=== PATIENT | male | born 1975 | race Caucasian/White ===

== ENCOUNTER 2019-11-18 09:06 | Inpatient (IN) ==
[2019-11-18] MEDS ORDERED: SEROQUEL PO PRN (13:53)
[2019-11-18] MEDS ORDERED: ZOFRAN IV PRN (13:53)
[2019-11-18] MEDS ORDERED: TYLENOL PO PRN (13:53)
[2019-11-18] MEDS ORDERED: DESYREL PO PRN (13:53)
[2019-11-18] MEDS ORDERED: NICODERM PATCH TD PRN (13:53)
[2019-11-18] MEDS ORDERED: MOTRIN PO PRN (13:53)
[2019-11-18] MEDS ORDERED: IMODIUM PO PRN ×2 (13:53)
[2019-11-18] MEDS ORDERED: MAALOX PLUS LIQUID PO PRN (13:53)
[2019-11-18] MEDS ORDERED: NICOTINE GUM BUCCAL PRN (13:53)
[2019-11-18] MEDS ORDERED: ZOFRAN ODT PO PRN (13:53)
[2019-11-18] MEDS ORDERED: D5W 1,000 ML IV PRN (13:53)
[2019-11-18] MEDS ORDERED: ZOFRAN IM PRN (13:53)
[2019-11-18] MEDS ORDERED: DULCOLAX PR PRN (13:53)
[2019-11-18] MEDS ORDERED: SENOKOT PO PRN (13:53)
[2019-11-18] MEDS ORDERED: PHENOBARBITAL IV PRN (13:53)
[2019-11-18] MEDS ORDERED: TUBERSOL ID ONE (13:53)
[2019-11-18 14:37] LABS: URINE SOURCE CLEAN CATCH
[2019-11-18 15:04] LABS: UR AMPHETAMINES QUAL NONE DETECTED (NONE DETECT); UR BARBITUATES QUAL NONE DETECTED (NONE DETECT); UR BENZODIAZEPIN QUAL NONE DETECTED (NONE DETECT); UR CANNABINOIDS QUAL NONE DETECTED (NONE DETECT); UR COCAINE QUAL NONE DETECTED (NONE DETECT); UR METHADONE QUAL NONE DETECTED (NONE DETECT); UR METHAMPHETAMINE QUAL NONE DETECTED (NONE DETECT); UR OPIATES QUAL NONE DETECTED (NONE DETECT); UR OXYCODONE QUAL NONE DETECTED (NONE DETECT); UR PCP QUAL NONE DETECTED (NONE DETECT); UR PROPOXYPHENE QUAL NONE DETECTED (NONE DETECT); UR TCA QUAL NONE DETECTED (NONE DETECT)
[2019-11-18 15:11] LABS: AMYLASE 35 U/L (20-200); LIPASE 55 U/L (13-60)
[2019-11-18 15:15] LABS: AGAP 16; ALBUMIN 4.1 g/dL (3.5-5.0); ALKALINE PHOSPHATASE 115 U/L (32-122); BUN 10 mg/dL (8-22); CALCIUM 8.8 mg/dL (8.8-10.2); CHLORIDE 104 mmol/L (98-107); COSMO 279; CREATININE 0.8 mg/dL (0.7-1.2); ESTIMATED GFR > 60; GLUCOSE 114 mg/dL (70-104); GOT 44 U/L (10-34); GPT 56 U/L (10-44); POTASSIUM 3.8 mmol/L (3.5-5.1); SODIUM 140 mmol/L (136-145); TCO2 20 mmol/L (25-35); TOTAL PROTEIN 7.3 g/dL (6.3-8.3)
[2019-11-18 15:18] LABS: UR EPITHELIAL CELLS <10 /HPF (<10); URINE BACTERIA 2+ /HPF
[2019-11-18 15:19] LABS: BILIRUBIN URINE NEGATIVE (NEGATIVE); BLOOD URINE NEGATIVE (NEGATIVE); COLOR YELLOW; GLUCOSE URINE NEGATIVE (NEGATIVE); KETONE URINE 40 mg/dL (NEGATIVE); PROTEIN URINE TRACE mg/dL (NEGATIVE); TURBIDITY URINE TURBID (CLEAR); UROBILINOGEN URINE NORMAL (NORMAL)
[2019-11-18 15:20] LABS: LEUKOCYTES URINE TRACE (NEGATIVE); NITRITE URINE NEGATIVE (NEGATIVE)
[2019-11-18] MEDS ORDERED: ROBAXIN PO PRN (17:28)
[2019-11-18] MEDS ORDERED: BENTYL PO PRN (17:28)
[2019-11-18] MEDS ORDERED: SALINE LOCK IV FLUID XX ONE (17:28)
[2019-11-18] MEDS ORDERED: ATARAX PO PRN (17:28)
[2019-11-18] MEDS: LIBRIUM PO SCH (18:34)
[2019-11-19] MEDS: LIBRIUM PO SCH ×4 (00:46→18:37)
--- NOTE | 2019-11-19 04:15 | HISTORY AND PHYSICAL ---
CHIEF COMPLAINT: Nausea, vomiting. HISTORY OF PRESENT ILLNESS: Patient is a 44-year-old male who [facility] secondary to nausea, vomiting, abdominal pain, myalgias, paresthesias, paroxysmal sweating. Notes he has been abusing alcohol, has been trying to stop. SOCIAL HISTORY: Patient is . He is currently unemployed. Lives at home in [place]. PAST MEDICAL HISTORY: 1. Frequent headaches. 2. Chronic anxiety. 3. History of concussions playing football. 4. History vomiting blood a week ago. MEDICATIONS: He is on no current medications, although does take ibuprofen. ALLERGIES: No known drug allergies. REVIEW OF SYSTEMS: His CIWA score is 26 secondary to moderate headaches, tremors, myalgias, paresthesias. He has tremors with his arms extended. He is easily anxious, nervous, has light sensitivity, sound sensitivity, easily startled. Has suicidal ideations only when he is intoxicated. SUBSTANCE ABUSE HISTORY: Patient has not been in treatment facility in the past. Does note that substance abuse has cost him his job currently, has created financial problems. Started drinking at 17, currently drinks a fifth a gallon a day for the past 5 years. Started smoking as a teenager, currently smokes 1-1/2 packs a day. No other illicit substance use. FAMILY HISTORY: Noncontributory. PHYSICAL: General: The patient is awake, alert, currently in no respiratory distress. HEENT: Normocephalic. Neck: Supple. Cardiovascular: Regular rate. Chest: Clear. Abdomen: Soft. Extremities: Moves all extremities. Neurologic: No changes. ASSESSMENT: 1. Nausea, vomiting. 2. Abdominal pain. 3. Myalgias. 4. Paresthesias. 5. Tremors. 6. Paroxysmal sweating. 7. Alcohol abuse withdrawal and stabilization. PLAN: We are going to continue patient in hospital. Continue counseling. Librium taper. We will follow. cc: Sergio Dobbins MD
[2019-11-19] MEDS: PROTONIX PO SCH (06:34)
[2019-11-19] MEDS ORDERED: M.V.I.-12 10 ML, FOLIC ACID 1 MG, MAGNESIUM SULFATE 1 GM, THIAMINE 100 MG in NS 1,000 ML IV ONE (09:00)
[2019-11-19] MEDS: VITAMIN B-1 PO SCH (10:30)
[2019-11-19] MEDS: FOLIC ACID PO SCH (10:30)
[2019-11-19] MEDS: THERA M PLUS PO SCH (10:30)
[2019-11-20] MEDS: LIBRIUM PO SCH ×4 (00:25→20:31)
--- NOTE | 2019-11-20 00:33 | PROGRESS NOTE ---
DATE: 11/19/2019 SUBJECTIVE: The patient has no new complaints. Notes that overall he is feeling a little bit better. Denies any fevers, chills. Denies cough. PHYSICAL EXAMINATION: Vital Signs: Reviewed, temperature 98 degrees, pulse 16, respiratory rate 18, BP 129/81. General: The patient is pleasant, currently in no respiratory distress. HEENT: Normocephalic. Neck: Supple. Cardiovascular: Regular rate. Chest: Clear. Abdomen: Soft. Extremities: Moves all extremities. Neurologic: No changes. ASSESSMENT: 1. Nausea and vomiting. 2. Abdominal pain. 3. Myalgias. 4. Paresthesias. 5. Tremors. 6. Paroxysmal sweating. 7. Alcohol abuse withdrawal and stabilization. PLAN: We are going to continue the patient in the hospital. Continue to follow. Further orders as-needed. Continue Librium taper. Continue counseling. cc: Sergio Dobbins MD
[2019-11-20] MEDS: PROTONIX PO SCH (06:18)
[2019-11-20] MEDS: FOLIC ACID PO SCH (09:53)
[2019-11-20] MEDS: THERA M PLUS PO SCH (09:53)
[2019-11-20] MEDS: VITAMIN B-1 PO SCH (09:54)
[2019-11-20] MEDS: REVIA PO SCH (12:30)
--- NOTE | 2019-11-20 23:47 | PROGRESS NOTE ---
DATE: 11/20/2019 SUBJECTIVE: Patient notes overall he is doing better from a withdrawal standpoint. Denies any fevers, chills. Denies cough, congestion. PHYSICAL EXAMINATION: Vital Signs: Reviewed. General: Patient is awake, alert, currently in no distress. HEENT: Normocephalic. Neck: Supple. Cardiovascular: Regular rate. Chest: Clear. Abdomen: Soft. Extremities: Moves all extremities. Neurologic: No changes. Skin: Warm, dry. No rashes. ASSESSMENT: 1. Nausea and vomiting. 2. Abdominal pain. 3. Myalgias. 4. Paresthesias. 5. Paroxysmal sweating. 6. Alcohol abuse, withdrawal and stabilization. PLAN: We will continue patient in the hospital. Continue to follow. Continue to wean Librium. Hopefully home over the next 1 or 2 days. Again discussed with patient medication assisted therapy, i.e., naltrexone. cc: Sergio Dobbins MD
[2019-11-21] MEDS: PROTONIX PO SCH (06:54)
[2019-11-21 09:25] VITALS: BP 132/97
[2019-11-21] MEDS ORDERED: VIVITROL IM ONE (11:05)
[2019-11-21] MEDS: FOLIC ACID PO SCH (11:27)
[2019-11-21] MEDS: VITAMIN B-1 PO SCH (11:27)
[2019-11-21] MEDS: THERA M PLUS PO SCH (11:27)
[2019-11-21] MEDS: LIBRIUM PO SCH (11:27)
[2019-11-21] MEDS: REVIA PO SCH (11:28)
--- NOTE | 2019-11-22 22:05 | DISCHARGE SUMMARY ---
ADMISSION DATE: 11/18/2019 DISCHARGE DATE: 11/21/2019 DISCHARGE DIAGNOSES: 1. Nausea, vomiting and abdominal pain. 2. Myalgias. 3. Paresthesias. 4. Paroxysmal sweating. 5. Alcohol abuse, withdrawal and stabilization. CONSULTATIONS: None. PROCEDURES: None. BRIEF HOSPITAL COURSE: The patient is a 44-year-old male who presented to [facility] secondary to nausea, vomiting, abdominal pain, and myalgias. He has been drinking heavily. Each time he tries to stop, his withdrawal symptoms become too severe. We admitted him to the hospital and placed him on high-dose Librium taper, tapered down as he tolerated. On discharge, he is awake, alert, oriented. He is in no distress. DISPOSITION: Patient will be discharged home. He did receive his first Vivitrol shot in the hospital. Discussed with him that he needs to either follow up and continue Vivitrol or naltrexone at least for 6 months. He needs outpatient life counseling as well as drug counseling. TIME SPENT: Greater than 30 minutes was spent in total care. cc: Sergio Dobbins MD
== END 2019-11-21 12:56 | disposition home or self-care (01) | DRG 897 ==
LOC: P.MEDSURG 13:43
PROVIDERS: ADMIT Family Medicine; ATTEND Family Medicine